=== PATIENT | female | born 1940 | race Caucasian/White ===

== ENCOUNTER → 2018-02-12 | Outpatient (CLI) | payer MEDICARE ==
[~2018-02-12] MED LIST: ASCO10004 PO; ASPI-496 PO; CHOL200074 PO; DILT360C10 PO; DULO30CA2 PO; FLUT1DIS3 INH; FURO20TA3 PO; HYDR-3245 PO; LOSA50TA6 PO; METF1000 PO; METO25TA35 PO; OMEG-76 PO; POTA8TAB6 PO; TIOT18CA INH; UBID1CAP52 PO
== END | disposition home or self-care (01) ==
LOC: RAD 11:55
PROVIDERS: ATTEND Nurse Practitioner Family
DX: M48.061 Spinal stenosis, lumbar region without neurogenic claudication (principal); M51.26 Other intervertebral disc displacement, lumbar region; M47.896 Other spondylosis, lumbar region
CPT/HCPCS: 72148

== ENCOUNTER → 2018-04-23 | Outpatient (CLI) | payer MEDICARE | END | disposition home or self-care (01) | LOC: CVU 12:15 | PROVIDERS: ATTEND Internal Medicine Cardiovascular Disease | DX: I65.23 Occlusion and stenosis of bilateral carotid arteries (principal); I71.4 Abdominal aortic aneurysm, without rupture; I08.1 Rheumatic disorders of both mitral and tricuspid valves; I10 Essential (primary) hypertension; F17.200 Nicotine dependence, unspecified, uncomplicated | CPT/HCPCS: 0399T; 93306; 93880; 93978 ==

== ENCOUNTER → 2018-09-23 | Outpatient (CLI) | payer MEDICARE ==
[~2018-09-23] MED LIST changes: -LOSA50TA6 PO; +LOSA50TA7 PO
== END | disposition home or self-care (01) ==
LOC: CFH 10:23
DX: Z13.820 Encounter for screening for osteoporosis (principal); M81.0 Age-related osteoporosis without current pathological fracture
CPT/HCPCS: 77080

== ENCOUNTER 2019-06-10 13:13 | Outpatient (CLI) | payer MEDICARE ==
[~2019-06-10 13:13] MED LIST changes: +LOSA50TA14 PO; -LOSA50TA7 PO
[2019-06-10] MEDS ORDERED: DULO30CA2 PO (13:52)
[2019-06-10] MEDS ORDERED: ATOR10TA9 PO (13:52)
[2019-06-10] MEDS ORDERED: METO25TA35 PO (13:52)
[2019-06-10] MEDS ORDERED: UBID1CAP43 PO (13:52)
[2019-06-10] MEDS ORDERED: ASCO500T8 PO (13:52)
[2019-06-10] MEDS ORDERED: FISH1CAP PO (13:52)
[2019-06-10 16:35] LABS: ALANINE AMINOTRANSFERASE 20 U/L (12-78); ALBUMIN 3.6 g/dL (3.4-5.0); ANION GAP 3 mmol/L (5-15); CALCIUM 10.3 mg/dL (8.5-10.1); CHLORIDE 106 mmol/L (98-107); CREATININE 1.27 mg/dL (0.55-1.02)
[2019-06-10 16:37] LABS: ALKALINE PHOSPHATASE 69 U/L (45-117); BILIRUBIN,TOTAL 0.6 mg/dL (0.2-1.0); TOTAL PROTEIN 7.6 g/dL (6.4-8.2)
== END 2019-06-10 23:59 | disposition home or self-care (01) ==
LOC: STAR 13:13
PROVIDERS: ATTEND Internal Medicine Geriatric Medicine
DX: Z01.818 Encounter for other preprocedural examination (principal); R19.4 Change in bowel habit; R63.4 Abnormal weight loss
CPT/HCPCS: 36415; 80053; 93005

== ENCOUNTER 2019-06-16 07:58 | Day surgery (SDC) | payer MEDICARE ==
[~2019-06-16] VITALS: Ht 160 cm; Wt 61.3 kg
[2019-06-16 09:21] VITALS: BP 156/77
== END 2019-06-16 12:20 | disposition home or self-care (01) ==
LOC: OUT 07:58
PROVIDERS: ATTEND Internal Medicine
DX: K29.50 Unspecified chronic gastritis without bleeding (principal); K57.30 Diverticulosis of large intestine without perforation or abscess without bleeding; K52.9 Noninfective gastroenteritis and colitis, unspecified; K63.89 Other specified diseases of intestine; K64.0 First degree hemorrhoids; K44.9 Diaphragmatic hernia without obstruction or gangrene; D64.9 Anemia, unspecified; E78.5 Hyperlipidemia, unspecified; I10 Essential (primary) hypertension; E11.9 Type 2 diabetes mellitus without complications; F17.210 Nicotine dependence, cigarettes, uncomplicated; Z79.82 Long term (current) use of aspirin; Z79.84 Long term (current) use of oral hypoglycemic drugs
CPT/HCPCS: 43239; 45380; 82962; 88305; 88342; 94640; J2704; J7120

== ENCOUNTER 2019-11-16 12:07 | Outpatient (CLI) | payer MEDICARE, OTHER ==
[~2019-11-16 12:07] MED LIST changes: +ASCO500T8 PO; +ATOR10TA9 PO; -DILT360C10 PO; +DILT360C32 PO; +FISH1CAP PO; +UBID1CAP43 PO
== END 2019-11-16 23:59 | disposition home or self-care (01) ==
LOC: CFH 12:07
PROVIDERS: ATTEND Internal Medicine Cardiovascular Disease
DX: I08.8 Other rheumatic multiple valve diseases (principal); I10 Essential (primary) hypertension; Z87.891 Personal history of nicotine dependence
CPT/HCPCS: 93306

== ENCOUNTER 2020-11-13 11:11 | Emergency (ER) | payer MEDICARE, OTHER ==
[~2020-11-13] VITALS: Ht 160 cm; Wt 55.0 kg
[~2020-11-13 11:11] MED LIST changes: +ASCO100018 PO; -ASCO10004 PO
--- NOTE | 2020-11-13 11:20 | NUR ---
DAUGHTER ROSEMARIE [phone], WOULD LIKE A CALL WHEN TEST ARE BACK
--- NOTE | 2020-11-13 12:32 | NUR ---
PT ASLEEP IN BED, NAD NOTED AT THIS TIME. RESPIRATIONS EVEN AND UNLABORED ON RA. SIDE RAILS UP, CALL LIGHT IN REACH. AWAITING FURTHER ORDERS.
[2020-11-13 12:34] LABS: BASOPHILS % (AUTO) 1 % (0-1); EOSINOPHILS % (AUTO) 0 % (1-7); LYMPHOCYTES % (AUTO) 11 % (22-44); MEAN CORPUSCULAR HEMOGLOBIN 31.8 pg (27.0-34.8); MEAN CORPUSCULAR HGB CONC 32.5 g/dL (32.4-35.8); MEAN PLATELET VOLUME 7.5 fL (7.4-10.4); MONOCYTES % (AUTO) 7 % (2-9); NEUTROPHILS % (AUTO) 81 % (42-75); PLATELET COUNT 354 x10^3/uL (130-400); RED BLOOD COUNT 3.94 x10^6/uL (3.82-5.3); RED CELL DISTRIBUTION WIDTH 14.7 % (9.6-15.2)
[2020-11-13 12:46] LABS: ALBUMIN 3.2 g/dL (3.4-5.0); ANION GAP 11 mmol/L (5-15); CALCIUM 8.5 mg/dL (8.5-10.1); CHLORIDE 105 mmol/L (98-107)
[2020-11-13 12:52] LABS: ALANINE AMINOTRANSFERASE 21 U/L (12-78); ALKALINE PHOSPHATASE 66 U/L (45-117); BILIRUBIN,TOTAL 0.5 mg/dL (0.2-1.0); CREATININE 2.05 mg/dL (0.55-1.02); TOTAL PROTEIN 6.4 g/dL (6.4-8.2); TROPONIN I 0.029 ng/mL (0.000-0.045)
[2020-11-13 12:55] LABS: MD SCAN
[2020-11-13] MEDS ORDERED: SODIUM CHLORIDE 0.9%, 500ML IVBOLUS ONE (13:30)
--- NOTE | 2020-11-13 13:50 | NUR ---
PT LAYING ON SIDE, RESTING. NAD NOTED AT THIS TIME. RESPIRATIONS EVEN AND UNLABORED ON RA. DAUGHTER REMAINS AT BEDSIDE. IVF INFUSING PER EMAR.
--- NOTE | 2020-11-13 14:31 | NUR ---
DISCUSSION WITH ERMD REGARDING COVID SWAB. AWAITING FURTHER ORDERS.
--- NOTE | 2020-11-13 14:45 | NUR ---
COVID SWAB OBTAINED PER [facility] -WALKED TO LAB
[2020-11-13 15:22] VITALS: BP 131/75
== END 2020-11-13 15:38 | disposition home or self-care (01) ==
LOC: ED 14:11
DX: J44.1 Chronic obstructive pulmonary disease with (acute) exacerbation (principal); Z20.822 Contact with and (suspected) exposure to COVID-19; F17.200 Nicotine dependence, unspecified, uncomplicated; E86.0 Dehydration; I11.0 Hypertensive heart disease with heart failure; I50.9 Heart failure, unspecified; J44.9 Chronic obstructive pulmonary disease, unspecified
CPT/HCPCS: 36415; 71045; 80053; 83690; 84484; 85025; 87040; 87635; 93005; 96360; 99285; J7040

== ENCOUNTER 2021-01-26 09:30 | Outpatient (CLI) | payer MEDICARE ==
[~2021-01-26 09:30] MED LIST changes: +DOCU-131 PO; -HYDR-3245 PO; +HYDR1TAB53 PO; +PANT40TA6 PO; +PRED20TA PO
== END 2021-01-26 23:59 | disposition home or self-care (01) ==
LOC: WOUND 09:30
PROVIDERS: ATTEND Internal Medicine
DX: E11.622 Type 2 diabetes mellitus with other skin ulcer (principal); L97.821 Non-pressure chronic ulcer of other part of left lower leg limited to breakdown of skin; L97.811 Non-pressure chronic ulcer of other part of right lower leg limited to breakdown of skin; S81.801A Unspecified open wound, right lower leg, initial encounter; S81.802A Unspecified open wound, left lower leg, initial encounter; L03.115 Cellulitis of right lower limb; L03.116 Cellulitis of left lower limb; I48.11 Longstanding persistent atrial fibrillation; E11.51 Type 2 diabetes mellitus with diabetic peripheral angiopathy without gangrene; J96.11 Chronic respiratory failure with hypoxia; R60.0 Localized edema; I87.8 Other specified disorders of veins; I10 Essential (primary) hypertension; I25.10 Atherosclerotic heart disease of native coronary artery without angina pectoris; J43.9 Emphysema, unspecified; E78.5 Hyperlipidemia, unspecified; F32.9 Major depressive disorder, single episode, unspecified; M19.90 Unspecified osteoarthritis, unspecified site; K58.9 Irritable bowel syndrome, unspecified; I27.20 Pulmonary hypertension, unspecified; I48.0 Paroxysmal atrial fibrillation; I48.92 Unspecified atrial flutter; F11.20 Opioid dependence, uncomplicated; I77.1 Stricture of artery; F17.210 Nicotine dependence, cigarettes, uncomplicated; Z85.118 Personal history of other malignant neoplasm of bronchus and lung; Z79.82 Long term (current) use of aspirin; Z88.5 Allergy status to narcotic agent; Z79.899 Other long term (current) drug therapy; Z96.642 Presence of left artificial hip joint; X58.XXXA Exposure to other specified factors, initial encounter; Y93.9 Activity, unspecified; Y92.89 Other specified places as the place of occurrence of the external cause; Y99.8 Other external cause status
CPT/HCPCS: 97597; 97598; G0463

== ENCOUNTER 2021-01-31 14:12 | Outpatient (CLI) | payer MEDICARE | END 2021-01-31 23:59 | disposition home or self-care (01) | LOC: WOUND 14:12 | PROVIDERS: ATTEND Internal Medicine | DX: E11.622 Type 2 diabetes mellitus with other skin ulcer (principal); L97.821 Non-pressure chronic ulcer of other part of left lower leg limited to breakdown of skin; L97.811 Non-pressure chronic ulcer of other part of right lower leg limited to breakdown of skin; S81.801D Unspecified open wound, right lower leg, subsequent encounter; S81.802D Unspecified open wound, left lower leg, subsequent encounter; L03.115 Cellulitis of right lower limb; L03.116 Cellulitis of left lower limb; I48.11 Longstanding persistent atrial fibrillation; E11.51 Type 2 diabetes mellitus with diabetic peripheral angiopathy without gangrene; J96.11 Chronic respiratory failure with hypoxia; R60.0 Localized edema; I87.8 Other specified disorders of veins; I10 Essential (primary) hypertension; I25.10 Atherosclerotic heart disease of native coronary artery without angina pectoris; J43.9 Emphysema, unspecified; E78.5 Hyperlipidemia, unspecified; F32.9 Major depressive disorder, single episode, unspecified; M19.90 Unspecified osteoarthritis, unspecified site; K58.9 Irritable bowel syndrome, unspecified; I27.20 Pulmonary hypertension, unspecified; I48.0 Paroxysmal atrial fibrillation; I48.92 Unspecified atrial flutter; F11.20 Opioid dependence, uncomplicated; I77.1 Stricture of artery; F17.210 Nicotine dependence, cigarettes, uncomplicated; Z85.118 Personal history of other malignant neoplasm of bronchus and lung; Z79.82 Long term (current) use of aspirin; Z88.5 Allergy status to narcotic agent; Z79.899 Other long term (current) drug therapy; Z96.642 Presence of left artificial hip joint; X58.XXXD Exposure to other specified factors, subsequent encounter | CPT/HCPCS: 97597 ==

== ENCOUNTER → 2021-02-07 | Outpatient (CLI) | payer MEDICARE, OTHER | END | disposition home or self-care (01) | LOC: WOUND 14:21 | PROVIDERS: ATTEND Internal Medicine | DX: E11.622 Type 2 diabetes mellitus with other skin ulcer (principal); L97.822 Non-pressure chronic ulcer of other part of left lower leg with fat layer exposed; L97.812 Non-pressure chronic ulcer of other part of right lower leg with fat layer exposed; S81.801D Unspecified open wound, right lower leg, subsequent encounter; S81.802D Unspecified open wound, left lower leg, subsequent encounter; L03.115 Cellulitis of right lower limb; L03.116 Cellulitis of left lower limb; I48.11 Longstanding persistent atrial fibrillation; E11.51 Type 2 diabetes mellitus with diabetic peripheral angiopathy without gangrene; J96.11 Chronic respiratory failure with hypoxia; R60.0 Localized edema; I87.8 Other specified disorders of veins; I10 Essential (primary) hypertension; I25.10 Atherosclerotic heart disease of native coronary artery without angina pectoris; J43.9 Emphysema, unspecified; E78.5 Hyperlipidemia, unspecified; F32.9 Major depressive disorder, single episode, unspecified; M19.90 Unspecified osteoarthritis, unspecified site; K58.9 Irritable bowel syndrome, unspecified; I27.20 Pulmonary hypertension, unspecified; I48.0 Paroxysmal atrial fibrillation; I48.92 Unspecified atrial flutter; F11.20 Opioid dependence, uncomplicated; I77.1 Stricture of artery; F17.210 Nicotine dependence, cigarettes, uncomplicated; Z85.118 Personal history of other malignant neoplasm of bronchus and lung; Z90.710 Acquired absence of both cervix and uterus; Z79.82 Long term (current) use of aspirin; Z88.5 Allergy status to narcotic agent; Z79.899 Other long term (current) drug therapy; Z96.642 Presence of left artificial hip joint; X58.XXXD Exposure to other specified factors, subsequent encounter | CPT/HCPCS: 97597; 97598 ==

== ENCOUNTER → 2021-02-14 | Outpatient (CLI) | payer MEDICARE | END | disposition home or self-care (01) | LOC: WOUND 13:56 | PROVIDERS: ATTEND Internal Medicine | DX: E11.622 Type 2 diabetes mellitus with other skin ulcer (principal); L97.822 Non-pressure chronic ulcer of other part of left lower leg with fat layer exposed; L97.812 Non-pressure chronic ulcer of other part of right lower leg with fat layer exposed; S81.801D Unspecified open wound, right lower leg, subsequent encounter; S81.802D Unspecified open wound, left lower leg, subsequent encounter; R23.4 Changes in skin texture; L03.115 Cellulitis of right lower limb; L03.116 Cellulitis of left lower limb; I48.11 Longstanding persistent atrial fibrillation; E11.51 Type 2 diabetes mellitus with diabetic peripheral angiopathy without gangrene; J96.11 Chronic respiratory failure with hypoxia; R60.0 Localized edema; I10 Essential (primary) hypertension; I25.10 Atherosclerotic heart disease of native coronary artery without angina pectoris; J43.9 Emphysema, unspecified; E78.5 Hyperlipidemia, unspecified; F32.9 Major depressive disorder, single episode, unspecified; M19.90 Unspecified osteoarthritis, unspecified site; K58.9 Irritable bowel syndrome, unspecified; I27.20 Pulmonary hypertension, unspecified; I48.0 Paroxysmal atrial fibrillation; I48.92 Unspecified atrial flutter; F11.20 Opioid dependence, uncomplicated; I77.1 Stricture of artery; F17.210 Nicotine dependence, cigarettes, uncomplicated; Z85.118 Personal history of other malignant neoplasm of bronchus and lung; Z90.710 Acquired absence of both cervix and uterus; Z79.82 Long term (current) use of aspirin; Z88.5 Allergy status to narcotic agent; Z79.899 Other long term (current) drug therapy; Z96.642 Presence of left artificial hip joint; X58.XXXD Exposure to other specified factors, subsequent encounter | CPT/HCPCS: 97597 ==